=== PATIENT | male | born 1985 ===

== ENCOUNTER → 2022-10-08 07:38 | Outpatient (CLI) | payer OTHER, SELFPAY ==
--- NOTE | ~2022-10-08 | US_ITS ---
US abdomen limited INDICATION: Elevated liver enzymes. PROCEDURE: Realtime right upper abdominal ultrasound. COMPARISON: No prior studies for comparison. FINDINGS: The pancreas is not well visualized due to bowel gas. Visualized aspects of the pancreas ar e unremarkable. Liver echotexture is diffusely increased, consistent with fatty infiltration There is normal directional flow in the portal vein. The gallbladder is normal without stones, gallbladder wall thickening or pericholecystic fluid. Comm on bile duct measures 4 mm. No sonographic Elizabeth's sign. IMPRESSION: 1: Hepatic steatosis. Reviewed, dictated and finalized at location A. [employer] IMPRESSION: 1: Hepatic steatosis.
== END ==
PROVIDERS: PCP Family Medicine; Visit Provider Family Medicine
DX: R74.8 Abnormal levels of other serum enzymes (principal); K76.0 Fatty (change of) liver, not elsewhere classified
CPT/HCPCS: 76705